=== PATIENT | female | born 1980 | race Caucasian/White ===

== ENCOUNTER 2017-10-04 09:03 | Emergency (ER) | payer OTHER ==
[~2017-10-04] VITALS: Ht 157.5 cm; Wt 81.6 kg
[~2017-10-04 09:03] MED LIST: BUPROPION XL300 MG; CLONAZEPAM0.5 MG
[2017-10-04] MEDS ORDERED: CYMBALTA20 MG PO (09:32)
[2017-10-04] MEDS ORDERED: PLAQUENIL (09:33)
[2017-10-04] MEDS ORDERED: ZYRTEC10 MG PO (10:08)
[2017-10-04] MEDS ORDERED: MEDROLPACK PO (10:08)
== END 2017-10-04 10:18 | disposition home or self-care (01) ==
LOC: ER 09:03
DX: R22.9 Localized swelling, mass and lump, unspecified (principal)